=== PATIENT | male | born 1980 | race Caucasian/White ===

== ENCOUNTER 2025-11-02 19:48 | Emergency (ER) | payer OTHER, SELFPAY ==
[2025-11-02] VITALS (9 sets, daily range): BP systolic 120–138; BP diastolic 47–61; PULSE 74–85; RESP 15–20; TEMP 36.3; O2SAT 94–97
--- NOTE | 2025-11-02 19:45 | DI.CT_ITS ---
Exam(s) CT HEAD CERVICAL SPINE WO EXAM: CT HEAD CERVICAL SPINE WO CLINICAL HISTORY: struck head on bed. TECHNIQUE: Imaging Protocol: Axial computed tomography images with coronal and sagittal reformatted images were created and reviewed COMPARISON: No exams were available for comparison FINDINGS: Head CT Ventricles and Extra axial spaces: Normal in size and morphology for the patient's age. Hemorrhage: None. Cerebral parenchyma: No evidence of mass or acute infarct. Midline shift: None. Brainstem/Cerebellum: Normal. Calvarium: Normal. Visualized Paranasal sinuses/Mastoids: Clear. Soft tissues: Unre right parietal scalp laceration. Cervical Spine CT BONES: Vertebral body heights are maintained. Alignment is normal. There is no evidence of acute fracture. Mild degenerative disc changes and facet degenerative changes are seen . SOFT TISSUES: No paraspinal hematoma. The airway appears intact. No pneumothorax is seen at the lung apices. IMPRESSION: Head CT: Right parietal scalp laceration no intracranial acute abnormality. C-spine CT: Mild degenerative changes, no acute abnormality. The preliminary [facility] report was reviewed. RADIATION DOSE DELIVERED: 1,283.32mGy.cm Total DLP DATA REPOSITORY: All CT scans at this facility are submitted to the National Radiology Data Registry (NRDR) Dose Index Registry (DIR) with the [employer] ([employer]). RADIATION OPTIMIZATION: All CT scans at this facility use at least one of these dose optimization techniques: automated exposure control; mA and/or kV adjustment per patient size (includes targeted exams where dose is matched to clinical indication); or iterative reconstruction.
[2025-11-02] MEDS: Lidocaine/Epinephri/Tetracaine Topical Gel 3 ML TP (20:02)
[2025-11-02] MEDS: Acetaminophen 500 MG TAB 1000 MG PO (20:02)
[2025-11-02] MEDS: Diph,Pertuss(Acell),Tet Vac/Pf 0.5 ML SYR IM (20:03)
--- NOTE | 2025-11-02 20:37 | DI.[facility]_ITS ---
PROCEDURE INFORMATION: Exam: CT Head Without Contrast Exam date and time: 11/02/2025 8:11 PM Age: 45 years old Clinical indication: Other: Struck head on bed TECHNIQUE: Imaging protocol: Computed tomography of the head without contrast. COMPARISON: No relevant prior studies available. FINDINGS: Brain: No acute intracranial hemorrhage, mass-effect, midline shift, or extra-axial collection is seen. The whyte white matter differentiation appears preserved. Cerebral ventricles: The ventricular system and basilar cisterns appear appropriate in size and configuration. Paranasal sinuses: The visualized paranasal sinuses appear well-aerated. Mastoid air cells: The mastoid air cells appear well-aerated. Auditory system: The middle ear cavities appear clear. Orbital cavities: The globes and intraorbital structures appear grossly intact. Bones: The bony calvarium appears intact. No depressed skull fracture is seen. Soft tissues: There is a small right parietal scalp laceration. No gross focal scalp hematoma is seen. IMPRESSION: No acute intracranial hemorrhage or depressed skull fracture. PROCEDURE INFORMATION: Exam: CT Cervical Spine Without Contrast Exam date and time: 11/02/2025 8:11 PM Age: 45 years old Clinical indication: Other: Struck head on bed TECHNIQUE: Imaging protocol: Computed tomography of the cervical spine without contrast. COMPARISON: No relevant prior studies available. FINDINGS: Bones: No acute cervical fracture or malalignment is seen. No cervical stenosis or significant foraminal narrowing is demonstrated. Lungs: There are bullous changes at the lung apices. Thyroid: The thyroid gland is partially excluded from view but appears grossly unremarkable through its visualized portion. Soft tissues: Within the limits of the exam, no gross soft tissue fluid collection is seen in the neck. IMPRESSION: No acute cervical fracture or malalignment is seen. Dictated and Authenticated by: Jose Lazaro MD. Orderin [facility] MD
--- NOTE | 2025-11-02 20:59 | ED.GENADUL_ITS ---
Discharge Plan Disposition Patient Disposition: [facility] Condition: Stable Discharge Details Clinical Impression: Laceration of scalp Primary Care Provider: Unknown,Unknown ED Provider: Lynsey Amaral Home Meds and New Rx's Prescriptions: No Action divalproex [Depakote] PO Discharge Instructions Instructions: Laceration Repair With Braeden ED Additional Instructions: You were seen in the emergency department today for evaluation after striking your head on a bunk bed. In our department you had a full physical examination performed, and had a CT scan that did not show any bleeding in your brain or fractures in your skull. Your spine also looks safe and the c-collar was removed in the emergency department. You received a tetanus booster and the laceration on your head was repaired with braeden. You need to keep this area clean and dry, and use bacitracin ointment and a bandage to prevent infection. The bacitracin should be applied 1-2 times per day. The braeden need to be removed in 7 to 10 days, this can be done at the [facility] or you can return to any emergency department to have this done. If you develop signs of infection such as spreading redness, fever or chills, or pus coming out of the wound you need to be reevaluated as you may require antibiotics. You can use Tylenol and ibuprofen as needed for management of pain and headache. Please follow-up with your primary care provider in the next few days to discuss this visit and any symptoms that change, worsen, or persist. Thank you for allowing us to be part of your care. Stand Alone Forms: Portal Information HPI General Mode of arrival: EMS . Date/Time Provider Initiated Documentation: 11/02/25 19:49 . Limitations to Documentation: no limitations . Information obtained by: patient, police, EMS and old records reviewed . HPI Narrative: This is a 45-year-old male patient presenting for evaluation of head injury. The patient stood up and struck the back of his head on the metal bunk bed, did briefly lose consciousness, states that he was having some blurry vision after this event. The patient does not take anticoagulant medications, did not injure any other part of his body, though his neck did feel quite sore. He was transported by EMS from a correctional facility for evaluation, was in a c- collar, did not have any strength or sensory deficits on EMS exam. Prior to this event he was in his normal state of health. Related Data Home Medications ?Medication ?Instructions ?Recorded ?Confirmed divalproex PO 11/02/25 Allergies Allergy/AdvReac Type Severity Reaction Status Date / Time No Known Allergies Allergy Unverified 11/02/25 19:57 General Stated Complaint: HeadInjury ROMA: 3 Exam Narrative Exam Narrative: Gen: Awake and alert, in no apparent distress HEENT: Non-icteric sclera, PERRL, EOMs are full of the patient does have bilateral horizontal nystagmus. He has a 3 cm laceration to the right posterior aspect of the scalp, hemostatic. He has no midface instability or tenderness, teeth and tongue uninjured Neck: No C-spine tenderness or step-offs, the patient does have bilateral soreness in the paraspinal muscles Lungs: No apparent respiratory distress, normal respiratory effort. Lung sounds clear and equal bilaterally without wheezes, rhonchi, rales CV: Appears well perfused, heart with regular rate and rhythm, strong distal pulses Abdomen: Non-distended, soft, nontender to palpation without rigidity, rebound, or guarding. MSK: Moves 4 extremities without apparent limitation in ROM. No peripheral edema or external evidence of trauma. No T or L-spine tenderness, chest wall stable to compression without crepitus or deformity, pelvis stable to AP compression. Skin: Visualized skin without rashes, cyanosis. Neuro: Full strength and sensation x 4 extremities, no facial asymmetry. Speaks in full, clear sentences. Psych: Appropriate for situation. Course Vital Signs Vital signs: Vital Signs Temperature 36.3 C L 11/02/25 19:54 Pulse 77 11/02/25 19:54 Respiratory Rate 16 11/02/25 19:54 Blood Pressure 138/59 L 11/02/25 19:54 Pulse Oximetry 97 11/02/25 19:54 Temperature 36.3 C L 11/02/25 19:54 Temperature Source Tympanic 11/02/25 19:54 Pulse 81 11/02/25 20:30 Pulse 81 11/02/25 20:30 Respiratory Rate 16 11/02/25 20:30 Respiratory Effort Normal, Non-Labored 11/02/25 20:20 Respiratory Depth Normal 11/02/25 20:20 Respiratory Pattern Normal 11/02/25 20:20 Blood Pressure 138/59 L 11/02/25 19:54 Blood Pressure Position Supine 11/02/25 19:54 Pulse Oximetry 95 11/02/25 20:30 Oxygen Delivery Method Room Air 11/02/25 19:54 Oxygen Flow Rate 0 11/02/25 19:54 Procedure Laceration Laceration 1: Date of Procedure: 11/02/25 Time of procedure: 20:45 Provider that performed the procedure: Lynsey Amaral Patient Consented: Verbally Site: scalp Side (If applicable): right Description: linear Depth: simple, single layer Local anesthetic: LET(lidocaine epinephrine tetracaine) Pre-repair:: wound explored, irrigated extensively and deep structures intact Skin layer closed with: braeden Number of sutures:: 4 Complications: None Procedure Description/Note: After thoroughly cleaning the wound, a linear laceration was able to be visualized without evidence of foreign body, significant bony destruction underlying, located on the right posterior aspect of the scalp. The wound was hemostatic and anesthetized with let. 4 braeden were placed to approximate the wound edges, excellent cosmetic outcome was achieved. The wound was bandaged with bacitracin. Medical Decision Making This is a 45-year-old male patient presenting for evaluation of head injury. Differential includes but is not limited to laceration, hematoma and contusion, intracranial hemorrhage, skull fracture, concussion, cervical spine fracture. Reassuringly the remainder of my head-to-toe physical examination does not show any additional injuries. We will obtain a CT scan of the brain and C-spine, provide let for anesthetic effect over the laceration prior to repair, and will update the patient's tetanus booster. At this time I do not see an indication to proceed with laboratory studies. -CT scan shows no intracranial hemorrhage, skull fracture or cervical spine fracture. The patient has had improvement in his blurry vision and has not had nausea or vomiting, change in mentation or development of neurodeficits, though certainly concussion remains on the differential. The laceration was repaired as noted above and the patient tolerated the procedure well. I did student services counselor him and the correctional officers on wound care, with a plan for bandaging, bacitracin 1-2 times per day, and staple removal in 7 to 10 days. At this time, the patient has had a full medical evaluation and is safe for discharge to home. They are hemodynamically stable, ambulatory, and tolerating PO. They are understanding of the follow-up plan and return precautions. They left our facility without incident. Lynsey Amaral MD PFSH All Active Problems (Updated 11/02/25 @ 21:00 by Lynsey Amaral MD) Laceration of scalp (Acute) Social History Smoking/Tobacco Use Status: Never Smoking risk assessment performed?: Yes Alcohol Intake: never Substance use type: does not use
== END 2025-11-02 21:06 ==
PROVIDERS: Emergency Provider Emergency Medicine
DX: S01.01XA Laceration without foreign body of scalp, initial encounter (principal); W22.8XXA Striking against or struck by other objects, initial encounter; Z23 Encounter for immunization
CPT/HCPCS: 99283; 99285; 12002; 90471; 90715; 70450; 72125